=== PATIENT | male | born 1975 | race Caucasian/White ===

== ENCOUNTER 2019-02-22 18:09 | Emergency (ER) | payer OTHER ==
[~2019-02-22] VITALS: Ht 182.9 cm; Wt 93.0 kg
[2019-02-22 18:48] LABS: ABSOLUTE BASOPHILS 0.1 thou/uL (0.0-0.2); ABSOLUTE EOSINOPHILS 0.4 thou/uL (0.0-0.7); ABSOLUTE LYMPHOCYTES 2.2 thou/uL (0.8-5.3); ABSOLUTE MONOCYTES 0.9 thou/uL (0.0-1.2); ABSOLUTE NEUTROPHILS 4.3 thou/uL (1.6-8.1); EOSINOPHILS 4.8 %; HEMATOCRIT 41.7 % (42.0-52.0); HEMOGLOBIN 14.2 gm/dL (14.0-18.0); LYMPHOCYTES 28.6 %; MCHC 34.1 g/dL (28.0-37.0); MCV 93.8 fL (80.0-100.0); MPV 7.5 fl. (7.2-11.1); NUCLEATED RBCS 0 /100WBC; PLATELET COUNT* 270 thou/uL (150-400); POLYS 54.6 %; RBC 4.45 mil/uL (4.50-6.00); RDW-CV 13.3 % (10.5-14.5); WBC 7.9 thou/uL (4.0-11.0)
[2019-02-22 19:03] LABS: ALBUMIN 3.6 g/dL (3.4-5.0); ALKALINE PHOSPHATASE 67 U/L (46-116); ANION GAP 7 mmol/L (7-16); BUN 9 mg/dL (7-18); CALCIUM 8.2 mg/dL (8.5-10.1); CHLORIDE 106 mmol/L (98-107); CO2 30 mmol/L (21-32); CREATININE 1.3 mg/dL (0.6-1.3); GLUCOSE 101 mg/dL (70-99); POTASSIUM 3.9 mmol/L (3.5-5.1); SGOT 15 U/L (15-37); SGPT 32 U/L (30-65); SODIUM 143 mmol/L (136-145); TOTAL BILIRUBIN 0.6 mg/dL (<0.1-1.0); TROPONIN-I LEVEL <0.06 ng/mL (<0.06)
[2019-02-22] MEDS ORDERED: TRANSDERM-SCOP1 EACH TRANSDERM (20:04)
[2019-02-22] MEDS ORDERED: CIPROFLOXIN HC2.5 M1 OTIC (21:12)
[2019-02-22] MEDS ORDERED: KEFLEX500 M1 PO (21:12)
[2019-02-22] MEDS ORDERED: ANTIVERT25 MG PO (21:12)
[2019-02-22 21:41] VITALS: BP 129/65
--- NOTE | 2019-02-23 13:04 | EKG ---
[place] [address] ELECTROCARDIOGRAM REPORT Name: STERLING BRIGGS [facility] [id number] Admission: 02/22/19 Attend Phys: Discharge: 02/22/19 Date of : 75 Report #: [id number] THIS REPORT FOR: //name// [facility] ED Test Date: 2019-02-22 Test Time: 19:03:04 Pat Name: STERLING BRIGGS Department: Room: Gender: M Branch Coordinator: JUAN : 1975 Requested By: Merry Galvez Order Number: [id number] MD: Harvey Garcia Measurements Intervals Rector Rate: 64 P: 34 [place]: 152 QRS: -22 QRSD: 94 T: 1 QT: 401 QTc: 414 Interpretive Statements Sinus rhythm Borderline left axis deviation Borderline T abnormalities, inferior leads Baseline wander in lead(s) V2 No previous ECG available for comparison Electronically Signed On 02-23-2019 13:04:24 CDT by Harvey Garcai [email or web address] <ELECTRONICALLY SIGNED> By: Harvey Garcia MD, [facility] 02/23/19 1304 02 02 Harvey Garcia MD, FACC /EPI
== END 2019-02-22 21:43 | disposition home or self-care (01) ==
LOC: M.ERS 18:09
PROVIDERS: Physician Assistant
DX: R42 Dizziness and giddiness (principal); H60.62 Unspecified chronic otitis externa, left ear